=== PATIENT | male | born 1995 | race Two or more races ===

== ENCOUNTER 2023-04-23 06:43 | Inpatient (IN) | payer MEDICAID ==
[~2023-04-23] VITALS: Ht 175.3 cm; Wt 69.3 kg
[2023-04-23 07:20] VITALS: PULSE 131; RESP 18; O2SAT 100
[2023-04-23] MEDS ORDERED: DEXTROSE (50%) 50ML SYRG IV PRN (07:45)
[2023-04-23 07:53] LABS: Basophils # (auto) 0 10 ^3/uL (0-0.2); Basophils % (auto) 0.1 % (0.0-2.0); Eosinophils # (auto) 0 10 ^3/uL (0-0.8); Hematocrit 47.1 % (41.0-53.0); Hemoglobin 15.1 g/dL (13.5-17.5); Lymphocytes # (auto) 1.1 10 ^3/uL (0.4-5.4); Lymphocytes % (auto) 5.5 % (10.0-50.0); Mean Corpuscular Hemoglobin 29.6 pg (28.0-32.0); Mean Corpuscular Volume 92.6 fL (80.0-100.0); Monocytes # (auto) 1.6 10 ^3/uL (0-1.3); Monocytes % (auto) 7.7 % (0.0-12.0); Neutrophils # (auto) 17.8 10 ^3/uL (1.6-8.6); Neutrophils % (auto) 86.7 % (37.0-80.0); Nucleated Red Blood Cells % 0.1 %; Red Blood Cells 5.09 10^6/uL (4.5-5.90); Red Cell Distribution Width 13.2 % (11.8-14.3); White Blood Cell 20.5 10^3/uL (4.4-10.8)
[2023-04-23] MEDS: ONDANSETRON HCL 4 MG/2 ML VIAL IV ONE (07:57)
[2023-04-23] MEDS: SODIUM CHLORIDE 0.9% 1,000 ML IV ONE ×2 (07:58→09:27)
[2023-04-23] MEDS: MORPHINE SULFATE 4 MG/ML SYR/VIAL IV ONE (07:58)
[2023-04-23] MEDS: INSULIN LANTUS (GLARGINE) 1 /0.01ml (100units/ml) SC ONE (07:58)
[2023-04-23] MEDS: INSULIN DRIP 100 UNIT/100ML 100 ML IV SCH (08:04)
[2023-04-23 08:18] LABS: Alanine Aminotransferase 24 U/L (7-40); Albumin 4.9 g/dL (3.2-4.8); Alkaline Phosphatase 113 U/L (46-116); Anion Gap 32.00001 (5-15); Aspartate Aminotransferase 22 U/L (13-40); BUN/Creatinine Ratio 12.7 (10.0-20.0); Bilirubin, Total 1.4 mg/dL (0.2-1.0); Blood Urea Nitrogen 24 mg/dL (9-23); Calcium 9.9 mg/dL (8.5-10.1); Chloride 87 mmol/L (98-107); Phosphorus 8.2 mg/dL (2.4-5.1); Potassium 4.7 mmol/L (3.5-5.1); Sodium 129 mmol/L (136-145)
[2023-04-23 08:19] LABS: Total Protein 7.6 g/dL (5.7-8.2)
[2023-04-23 08:20] LABS: Base Excess -15.9 mmol/L (-2.0-2.0)
[2023-04-23 08:27] LABS: Carbon Dioxide < 10 mmol/L (20-30); Glucose 769 mg/dL (74-106)
[2023-04-23 08:37] LABS: Magnesium 2.3 mg/dL (1.6-2.6)
[2023-04-23] MEDS: SODIUM CHLORIDE 0.9% 1,000 ML IV SCH ×4 (09:00→11:47)
[2023-04-23 09:01] VITALS: PULSE 135; RESP 18; O2SAT 100
[2023-04-23] MEDS ORDERED: OMEP1CAP70 PO (09:05)
[2023-04-23] MEDS: ACCU-CHEK COMFORT CURVE STRIP VI SCH (09:08)
[2023-04-23] MEDS ORDERED: NITROGLYCERIN 0.4 MG SL TAB SL PRN (09:30)
[2023-04-23] MEDS ORDERED: ACETAMINOPHEN 325 MG TAB PO PRN (09:30)
[2023-04-23] MEDS ORDERED: MORPHINE SULFATE INJ 2 MG/ml SYRG IV PRN (09:30)
[2023-04-23] MEDS: OMEPRAZOLE 40MG/20ML ORAL SUSP PO SCH (10:00)
[2023-04-23] MEDS: ENOXAPARIN SOD 40 MG/0.4 ML SYRINGE SC SCH (10:00)
[2023-04-23] MEDS: HYDROcodone-ACET 5/325MG TAB PO PRN (10:44)
[2023-04-23 10:55] LABS: Urine WBC None Seen /hpf (0 - 3)
[2023-04-23 11:10] LABS: Urine Bacteria NONE SEEN /hpf (None Seen); Urine Blood Negative /uL (Negative); Urine Clarity Clear (Clear); Urine Protein, UAD Negative (Negative); Urine Specific Gravity 1.024 (1.001-1.035); Urine Urobilinogen Normal (Negative)
[2023-04-23 11:27] LABS: Urine Color Yellow (Yellow)
[2023-04-23] MEDS: ONDANSETRON HCL 4 MG/2 ML VIAL IV PRN (12:12)
[2023-04-23] MEDS: MORPHINE SULFATE INJ 2 MG/ml SYRG IV PRN (12:12)
[2023-04-23 14:51] LABS: Alanine Aminotransferase 18 U/L (7-40); Albumin 4.6 g/dL (3.2-4.8); Alkaline Phosphatase 99 U/L (46-116); Anion Gap 14 (5-15); Aspartate Aminotransferase 15 U/L (13-40); BUN/Creatinine Ratio 13.7 (10.0-20.0); Blood Urea Nitrogen 18 mg/dL (9-23); Calcium 8.6 mg/dL (8.5-10.1); Carbon Dioxide 19 mmol/L (20-30); Chloride 105 mmol/L (98-107); Potassium 4.1 mmol/L (3.5-5.1); Sodium 138 mmol/L (136-145)
[2023-04-23 14:53] LABS: Glucose 243 mg/dL (74-106)
[2023-04-23 18:58] LABS: Alanine Aminotransferase 13 U/L (7-40); Albumin 3.8 g/dL (3.2-4.8); Alkaline Phosphatase 78 U/L (46-116); Anion Gap 7 (5-15); Aspartate Aminotransferase 9 U/L (13-40); BUN/Creatinine Ratio 16.4 (10.0-20.0); Blood Urea Nitrogen 18 mg/dL (9-23); Calcium 7.7 mg/dL (8.7-10.4); Carbon Dioxide 23 mmol/L (20-30); Chloride 106 mmol/L (98-107); Glucose 206 mg/dL (74-106); Potassium 3.8 mmol/L (3.5-5.1); Sodium 136 mmol/L (136-145)
[2023-04-23 18:59] LABS: Bilirubin, Total 0.9 mg/dL (0.2-1.0); Total Protein 6.3 g/dL (5.7-8.2)
[2023-04-23 19:30] VITALS: PULSE 115; RESP 15; O2SAT 97
[2023-04-23 22:13] LABS: Alanine Aminotransferase 14 U/L (7-40); Albumin 3.7 g/dL (3.2-4.8); Alkaline Phosphatase 76 U/L (46-116); Anion Gap 5 (5-15); Aspartate Aminotransferase 10 U/L (13-40); BUN/Creatinine Ratio 13.7 (10.0-20.0); Blood Urea Nitrogen 14 mg/dL (9-23); Calcium 7.8 mg/dL (8.7-10.4); Carbon Dioxide 25 mmol/L (20-30); Chloride 105 mmol/L (98-107); Glucose 171 mg/dL (74-106); Potassium 3.6 mmol/L (3.5-5.1); Sodium 135 mmol/L (136-145)
[2023-04-24] MEDS ORDERED: DEXTROSE (50%) 50ML SYRG IV PRN (00:45)
[2023-04-24 02:53] LABS: Alanine Aminotransferase 13 U/L (7-40); Albumin 3.6 g/dL (3.2-4.8); Alkaline Phosphatase 74 U/L (46-116); Anion Gap 7 (5-15); Aspartate Aminotransferase 11 U/L (13-40); Blood Urea Nitrogen 11 mg/dL (9-23); Calcium 7.7 mg/dL (8.7-10.4); Carbon Dioxide 25 mmol/L (20-30); Chloride 105 mmol/L (98-107); Glucose 174 mg/dL (74-106); Potassium 3.3 mmol/L (3.5-5.1); Sodium 137 mmol/L (136-145)
[2023-04-24 02:54] LABS: Bilirubin, Total 1.1 mg/dL (0.2-1.0); Total Protein 5.7 g/dL (5.7-8.2)
[2023-04-24] MEDS: InsuLIN REG 1unit/0.01ml Soln (100units/ml) SC SCH (03:09)
[2023-04-24] MEDS: ACCU-CHEK COMFORT CURVE STRIP VI SCH (03:09)
[2023-04-24 05:57] LABS: Basophils # (auto) 0 10 ^3/uL (0-0.2); Eosinophils # (auto) 0 10 ^3/uL (0-0.8); Eosinophils % (auto) 0.1 % (0.0-7.0); Hemoglobin 12.6 g/dL (13.5-17.5); Lymphocytes # (auto) 1.9 10 ^3/uL (0.4-5.4); Lymphocytes % (auto) 12.1 % (10.0-50.0); Mean Corpuscular Hemoglobin 30.2 pg (28.0-32.0); Mean Corpuscular Hgb Conc. 34.2 g/dL (32.0-36.0); Mean Corpuscular Volume 88.4 fL (80.0-100.0); Monocytes # (auto) 1.5 10 ^3/uL (0-1.3); Monocytes % (auto) 9.9 % (0.0-12.0); Neutrophils # (auto) 11.9 10 ^3/uL (1.6-8.6); Neutrophils % (auto) 77.9 % (37.0-80.0); Red Blood Cells 4.18 10^6/uL (4.5-5.90); Red Cell Distribution Width 13.2 % (11.8-14.3); White Blood Cell 15.3 10^3/uL (4.4-10.8)
[2023-04-24 06:18] LABS: Alanine Aminotransferase 14 U/L (7-40); Albumin 3.7 g/dL (3.2-4.8); Alkaline Phosphatase 82 U/L (46-116); Anion Gap 9 (5-15); Aspartate Aminotransferase 12 U/L (13-40); BUN/Creatinine Ratio 9.6 (10.0-20.0); Bilirubin, Total 1.1 mg/dL (0.2-1.0); Blood Urea Nitrogen 9 mg/dL (9-23); Carbon Dioxide 25 mmol/L (20-30); Chloride 103 mmol/L (98-107); Glucose 196 mg/dL (74-106); Potassium 3.3 mmol/L (3.5-5.1); Sodium 137 mmol/L (136-145)
[2023-04-24 07:56] VITALS: PULSE 117; RESP 17; O2SAT 98
[2023-04-24] MEDS: INSULIN LANTUS (GLARGINE) 1 /0.01ml (100units/ml) SC SCH (09:12)
[2023-04-24] MEDS: PANTOPRAZOLE 40 MG TAB PO SCH (09:12)
[2023-04-24] MEDS: MORPHINE SULFATE 4 MG/ML SYR/VIAL IV PRN (16:27)
[2023-04-24 19:45] VITALS: PULSE 103; RESP 16; O2SAT 98
[2023-04-25] MEDS: INSULIN LANTUS (GLARGINE) 1 /0.01ml (100units/ml) SC SCH (11:45)
[2023-04-25 16:58] VITALS: BP 151/96; PULSE 105; RESP 20; TEMP 98.5; O2SAT 96
[2023-04-25] MEDS ORDERED: INSU100I54 SC (17:03)
[2023-04-25 20:00] VITALS: PULSE 88; PULSE 92; RESP 18; O2SAT 98
[2023-04-25 22:00] VITALS: BP 135/93; PULSE 92; RESP 18; TEMP 98.1; O2SAT 98
[2023-04-26 05:00] VITALS: BP 124/91; PULSE 112; RESP 19; TEMP 97.5; O2SAT 96
[2023-04-26 08:00] VITALS: BP 124/77; PULSE 108; PULSE 90; RESP 21; TEMP 98; O2SAT 98
[2023-04-26 08:56] VITALS: BP 124/77; PULSE 108; RESP 21; TEMP 98; O2SAT 98
[2023-04-26] MEDS: INSULIN LANTUS (GLARGINE) 1 /0.01ml (100units/ml) SC SCH (10:45)
[2023-04-26] MEDS: Glucerna Carbsteady SHAKE Vanilla 8oz PO SCH (12:24)
[2023-04-26 12:34] VITALS: BP 142/87; PULSE 95; RESP 20; TEMP 98.3; O2SAT 95
[2023-04-26 13:02] LABS: Basophils # (auto) 0 10 ^3/uL (0-0.2); Basophils % (auto) 0.3 % (0.0-2.0); Eosinophils # (auto) 0 10 ^3/uL (0-0.8); Eosinophils % (auto) 0.2 % (0.0-7.0); Hematocrit 40.8 % (41.0-53.0); Hemoglobin 14.4 g/dL (13.5-17.5); Lymphocytes # (auto) 1.1 10 ^3/uL (0.4-5.4); Mean Corpuscular Hemoglobin 31.1 pg (28.0-32.0); Mean Corpuscular Hgb Conc. 35.3 g/dL (32.0-36.0); Mean Corpuscular Volume 88.1 fL (80.0-100.0); Monocytes # (auto) 0.7 10 ^3/uL (0-1.3); Monocytes % (auto) 10.2 % (0.0-12.0); Neutrophils # (auto) 5.2 10 ^3/uL (1.6-8.6); Neutrophils % (auto) 73.3 % (37.0-80.0); Nucleated Red Blood Cells % 0.1 %; Red Blood Cells 4.63 10^6/uL (4.5-5.90); Red Cell Distribution Width 12.7 % (11.8-14.3); White Blood Cell 7.1 10^3/uL (4.4-10.8)
[2023-04-26 13:20] LABS: Chloride 95 mmol/L (98-107); Potassium 3.4 mmol/L (3.5-5.1); Sodium 133 mmol/L (136-145)
[2023-04-26 13:21] LABS: Anion Gap 5 (5-15); Calcium 9.2 mg/dL (8.5-10.1); Carbon Dioxide 33 mmol/L (20-30)
[2023-04-26 13:26] LABS: BUN/Creatinine Ratio 9.3 (10.0-20.0); Blood Urea Nitrogen 7 mg/dL (9-23); Glucose 261 mg/dL (74-106)
[2023-04-26 16:54] VITALS: BP 139/76; PULSE 101; RESP 20; TEMP 98.4; O2SAT 98
[2023-04-26 22:00] VITALS: BP 118/73; PULSE 105; RESP 20; TEMP 98.2; O2SAT 97
[2023-04-27 05:00] VITALS: BP 136/88; PULSE 97; RESP 20; TEMP 98.7; O2SAT 97
[2023-04-27 09:00] VITALS: BP 127/87; PULSE 116; RESP 20; TEMP 98.2; O2SAT 97
[2023-04-27] MEDS ORDERED: INSUINJ37 SC (11:12)
[2023-04-27] MEDS ORDERED: INSU31MI XX (11:12)
[2023-04-27 12:08] VITALS: BP 127/87; PULSE 89; RESP 18; TEMP 36.8; O2SAT 97
[2023-04-27 13:00] VITALS: BP 121/71; PULSE 94; RESP 18; TEMP 98.6; O2SAT 97
== END 2023-04-27 13:00 | disposition home or self-care (01) | DRG 249 ==
LOC: ER 06:43 → TELE 09:20 → TELE-WESTW 04-25 16:44 → WEST WING 04-26 15:59
PROVIDERS: ADMIT Nurse Practitioner Family; ATTEND Internal Medicine
DX: E86.0 Dehydration (principal); K52.9 Noninfective gastroenteritis and colitis, unspecified; N17.0 Acute kidney failure with tubular necrosis; E10.10 Type 1 diabetes mellitus with ketoacidosis without coma; R65.10 Systemic inflammatory response syndrome (SIRS) of non-infectious origin without acute organ dysfunction; R11.2 Nausea with vomiting, unspecified; Z79.4 Long term (current) use of insulin
CPT/HCPCS: 36415; 36600; 80048; 80053; 81001; 82010; 82805; 82962; 83036; 83735; 83930; 84100; 85025; 87040; 93005; 99291; G0378; J1815; J2405

== ENCOUNTER 2023-06-27 11:28 | Emergency (ER) | payer MEDICAID ==
[~2023-06-27] VITALS: Ht 175.3 cm; Wt 68.0 kg
[~2023-06-27 11:28] MED LIST: INSU100I54 SC; INSU31MI XX; INSUINJ37 SC; OMEP1CAP70 PO
[2023-06-27 11:55] VITALS: BP 142/74; PULSE 118; RESP 20; O2SAT 97
[2023-06-27] MEDS ORDERED: SODIUM CHLORIDE 0.9% 1,000 ML IV ONE (12:15)
[2023-06-27 12:23] LABS: Urine Bacteria None Seen /hpf (None Seen)
[2023-06-27 12:50] LABS: Urine Blood Negative /uL (Negative); Urine Clarity Clear (Clear); Urine Color Light-Yellow (Yellow); Urine Protein, UAD Negative (Negative); Urine Specific Gravity 1.036 (1.001-1.035); Urine Urobilinogen Normal (Negative); Urine WBC <1 /hpf (0 - 3)
[2023-06-27 13:20] LABS: Basophils # (auto) 0 10 ^3/uL (0-0.2); Basophils % (auto) 0.5 % (0.0-2.0); Eosinophils # (auto) 0 10 ^3/uL (0-0.8); Eosinophils % (auto) 0.7 % (0.0-7.0); Hematocrit 42.4 % (41.0-53.0); Hemoglobin 14.3 g/dL (13.5-17.5); Lymphocytes # (auto) 1.5 10 ^3/uL (0.4-5.4); Lymphocytes % (auto) 30.9 % (10.0-50.0); Mean Corpuscular Hemoglobin 29.8 pg (28.0-32.0); Mean Corpuscular Hgb Conc. 33.7 g/dL (32.0-36.0); Mean Corpuscular Volume 88.5 fL (80.0-100.0); Monocytes # (auto) 0.4 10 ^3/uL (0-1.3); Monocytes % (auto) 8.7 % (0.0-12.0); Neutrophils # (auto) 2.9 10 ^3/uL (1.6-8.6); Neutrophils % (auto) 59.2 % (37.0-80.0); Red Blood Cells 4.79 10^6/uL (4.5-5.90); Red Cell Distribution Width 13.1 % (11.8-14.3); White Blood Cell 4.8 10^3/uL (4.4-10.8)
[2023-06-27 13:39] LABS: Alanine Aminotransferase 13 U/L (7-40); Albumin 4.1 g/dL (3.2-4.8); Alkaline Phosphatase 146 U/L (46-116); Anion Gap 10 (5-15); Aspartate Aminotransferase < 8 U/L (13-40); BUN/Creatinine Ratio 20.2 (10.0-20.0); Blood Urea Nitrogen 20 mg/dL (9-23); Calcium 9.9 mg/dL (8.5-10.1); Carbon Dioxide 28 mmol/L (20-30); Chloride 92 mmol/L (98-107); Potassium 4.7 mmol/L (3.5-5.1); Sodium 130 mmol/L (136-145)
[2023-06-27 13:40] LABS: Bilirubin, Total 0.4 mg/dL (0.2-1.0); Total Protein 6.9 g/dL (5.7-8.2)
[2023-06-27 13:44] LABS: Glucose 473 mg/dL (74-106)
== END 2023-06-27 15:07 | disposition left against medical advice (07) ==
LOC: ER 11:28
DX: J32.9 Chronic sinusitis, unspecified (principal); E11.65 Type 2 diabetes mellitus with hyperglycemia; F12.10 Cannabis abuse, uncomplicated
CPT/HCPCS: 36415; 71045; 80053; 81001; 82010; 85025